=== PATIENT | male | born 1955 | race Caucasian/White ===

== ENCOUNTER 2017-09-29 01:56 | Emergency (ER) | payer BC ==
[2017-09-29] MEDS ORDERED: SODIUM CHLORIDE 0.9% 1000ML 1,000 ML IV ONE (02:15)
[2017-09-29 02:31] LABS: BASOPHILS # (AUTO) 0.1 (0.0-0.1); BASOPHILS % 0.5 % (0.0-1.0); EOSINOPHILS # (AUTO) 0.2 (0.0-0.4); EOSINOPHILS % 1.6 % (0.0-6.0); HEMATOCRIT 55.5 % (38.2-49.6); HEMOGLOBIN 17.9 g/dL (14.0-18.0); LYMPHOCYTES # (AUTO) 2.5 (1.0-3.2); LYMPHOCYTES % 21.2 % (18.0-39.1); MEAN CORPUSCULAR HEMOGLOBIN 28.3 pg (28-32); MEAN CORPUSCULAR HGB CONC 32.3 g/dL (31-35); MEAN CORPUSCULAR VOLUME 87.8 fL (81-99); MONOCYTES # (AUTO) 0.8 (0.2-0.8); MONOCYTES % 6.7 % (4.4-11.3); NEUTROPHILS # (AUTO) 8.1 (2.1-6.9); NEUTROPHILS % 69.7 % (38.7-80.0); PLATELET COUNT 247 x10e3/uL (140-360); RED BLOOD COUNT 6.32 x10e6/uL (4.3-5.7); RED CELL DISTRIBUTION WIDTH 13.2 % (11.7-14.4)
[2017-09-29 02:51] LABS: ALANINE AMINOTRANSFERASE 23 IU/L (0-55); ALBUMIN/GLOBULIN RATIO 1.2 (0.8-2.0); ALKALINE PHOSPHATASE 65 IU/L (40-150); AMYLASE 53 U/L (25-125); ANION GAP 14.9 mmol/L (8-16); BLOOD UREA NITROGEN 15 mg/dL (7-26); BUN/CREATININE RATIO 15 (6-25); CARBON DIOXIDE 25 mmol/L (22-29); CHLORIDE 101 mmol/L (98-107); CREATININE, SERUM 0.98 mg/dL (0.72-1.25); EST GLOMERULAR FILTRATION RATE > 60 ML/MIN (60-); GLUCOSE 110 mg/dL (74-118); LIPASE 26 U/L (8-78); POTASSIUM 3.9 mmol/L (3.5-5.1); SODIUM 137 mmol/L (136-145)
[2017-09-29 03:26] LABS: BILIRUBIN,URINE NEGATIVE (NEGATIVE); KETONES,URINE NEGATIVE (NEGATIVE); LEUKOCYTE ESTERASE ,URINE NEGATIVE (NEGATIVE); NITRITE,URINE NEGATIVE (NEGATIVE); PROTEIN,URINE DIPSTICK NEGATIVE (NEGATIVE); URINE UROBILINOGEN 0.2 mg/dL (0.2 - 1)
[2017-09-29 03:27] LABS: CLARITY,URINE CLEAR (CLEAR); COLOR,URINE YELLOW (YELLOW)
[2017-09-29 03:37] LABS: BACTERIA,URINE RARE /HPF; WBC,URINE (MAN) 0-5 /HPF (0-5)
--- NOTE | 2017-09-29 04:03 | Diagnostic Imaging Report ---
EXAM: CT ABDOMEN AND PELVIS with IV CONTRAST DATE: 09/29/2017 2:09 AM Time stamp on Exam: 0321 hours INDICATION: Left lower quadrant pain COMPARISON: None TECHNIQUE: The abdomen and pelvis were scanned using a multidetector helical scanner. Coronal and sagittal reformations were obtained. Routine protocol performed. IV Contrast: 100 cc Isovue-370 Oral Contrast: Gastrografin CTDIvol has been reviewed. It is below the limits set by the Radiation Protocol Committee (RPC). FINDINGS: LOWER THORAX: No consolidations LIVER: No masses BILIARY: The gallbladder is unremarkable. No ductal dilation. SPLEEN: No masses PANCREAS: No masses ADRENALS: No nodules KIDNEYS: Symmetric perfusion. No enhancing masses. No hydronephrosis. Stone measuring 9 mm in the left renal pelvis. GI TRACT: No distention, wall thickening or evidence of obstruction. Normal appendix. VESSELS: Unremarkable PERITONEUM/RETROPERITONEUM: No free air or fluid LYMPH NODES: No lymphadenopathy REPRODUCTIVE ORGANS: Unremarkable BLADDER: Unremarkable SOFT TISSUES: Small fat-containing umbilical hernia. BONES: No suspicious bone lesions. IMPRESSION: 1. Nonobstructing 9 mm stone in the left renal pelvis. 2. No evidence of diverticulitis. Normal appendix. Signed by: Dr. Jaja Bender M.D. on 09/29/2017 4:00 AM
[2017-09-29 04:35] VITALS: BP 142/84
== END 2017-09-29 04:00 | disposition home or self-care (01) ==
LOC: ER 01:56
DX: R10.32 Left lower quadrant pain (principal); N20.0 Calculus of kidney; M54.9 Dorsalgia, unspecified; G89.29 Other chronic pain
CPT/HCPCS: 36415; 74177; 80053; 81001; 82150; 83690; 85025; 87086; 96360; 99284; J7030

== ENCOUNTER → 2017-09-29 | Outpatient (CLI) | payer BC ==
[~2017-09-29] MED LIST: CENTRUM SILVER1 EAC3 PO; DIATRIZOATE MEGL/DIATRIZOA SOD 30 ML BTL PO ONE; FLOMAX0.4 MG PO; IOPAMIDOL 370 MG/ML 200 ML INFUS..BTL INJ ONE; KRILL OIL500 MG PO; LEVOTHYROXINE75 MCG PO; MELOXICAM7.5 MG PO; PRAVASTATIN SOD40 MG PO; PRILOSEC OTC20 MG PO; ROBAXIN-750750 MG PO; SODIUM CHLORIDE 0.9% 50ML 50 ML ONE; ULTRAM 50MG50 MG PO; VITAMIN E400 UNI1 PO; ZOFRAN ODT4 MG PO; super beta prostate PO
--- NOTE | 2017-09-29 15:27 | Diagnostic Imaging Report ---
History: Bilateral leg pain, back pain Comparison studies: None Technique: Sagittal, coronal and axial T2 , sagittal T1 and IR, axial spin density oblique. Intravenous contrast: None Findings: Number of lumbar vertebral bodies:5 Alignment: Straightening of the normal lordosis.No scoliosis. Soft tissues: No T2 hyperintense inflammatory changes. Paraspinal muscles: No signal abnormalities. No atrophy. Lower thoracic cord:Normal in signal and morphology. The tip of the conus is at L1. Cauda equina: No masses. No arachnoiditis. Vertebrae: Normal in height and signal intensity. No compression fractures, infection or neoplasm. Degenerative changes: L1-L2: Disc degeneration with loss of T2 signal and decreased intervertebral space. Diffuse bulge results in no canal stenosis or significant foraminal narrowing. L2-L3: Disc degeneration with loss of T2 signal and decreased intervertebral space. Schmorl's mild at the L2 inferior endplate with adjacent edema. Mild diffuse disc bulge and mild facet hypertrophy results in no significant canal stenosis or foraminal narrowing. L3-L4: Aeration with loss of T2 signal facet hypertrophy with patent canal and foramina. L4-L5: Disc degeneration with loss of T2 signal. Mild diffuse disc bulge with superimposed small central disc protrusion and mild bilateral facet hypertrophy results in no significant canal stenosis and mild bilateral foraminal narrowing. L5-S1: Moderate right and mild left facet hypertrophy without significant canal stenosis or foraminal narrowing. Additional findings: None IMPRESSION: Disc degeneration and mild posterior hypertrophy at the medial lower lumbar spine without significant canal stenosis and mild bilateral foraminal narrowing at L4-L5. Schmorl node at L2 inferior endplate with adjacent mild edema. Signed by: DR Joe Willard M.D. on 09/29/2017 3:24 PM
== END ==
LOC: MRI 05:25
PROVIDERS: ATTEND Internal Medicine
DX: M54.30 Sciatica, unspecified side (principal)
CPT/HCPCS: 72148; Q9967

== ENCOUNTER 2017-10-01 12:51 | Inpatient (IN) | payer BC ==
[~2017-10-01] VITALS: Ht 172.7 cm; Wt 96.6 kg
[2017-10-01] MEDS ORDERED: ONDANSETRON HCL INJ 2 MG/ML VIAL IV STA (12:54)
[2017-10-01] MEDS ORDERED: SODIUM CHLORIDE 0.9% 1000ML 1,000 ML IV STA (12:54)
[2017-10-01] MEDS ORDERED: MORPHINE SULFATE 4 MG/ML SYR IV STA (12:54)
--- OUTSIDE RECORDS SUMMARY | 2017-10-01 12:54 | XMS REPORT | Continuity of Care Document ---
Author Author [facility] Organization [facility] Address [address] [place] [address] Phone Unavailable Care Team Providers Care Gun Numberer Name Role Phone JOVAN FRAUSTO MD PCP Insurance Providers Guarantor García Oh Address [address] [place] [phone] Email [email or web address] P[facility] Policy Number [id number] Subscriber's Name OhRafaela murillo Relationship 01 Group Number [id number] Group Name [facility] Effective Date 14 Advance Directives Directive Response Recorded Date/Time Does the patient have an advance directive? No 09/29/17 1:53am If yes, is advance directive on file with [facility]? No 01/25/15 7:32am If not on file with [facility] will patient provide a copy? No 01/25/15 7:32am Do you have a Directive to Physician? No 09/29/17 5:24am Do you have a Medical Power of Putty Tinter Maker? No 09/29/17 5:24am Do you have an out of hospital Do Not Resuscitate Order? No 09/29/17 5:24am Do you have any special needs we should be aware of? No 09/29/17 5:24am Do you have a support person here with you today? No 09/29/17 5:24am Did patient receive Notice of Privacy Practices? Yes 09/29/17 5:24am Did patient receive patient rights and responsibilities? Yes 09/29/17 5:24am Problems No problem information available. Medications No medication information available. Social History No social history information available. Hospital Discharge Instructions Current inpatient/outpatient. Discharge instructions are currently unavailable. Plan of Care Current inpatient/outpatient. The plan of care is currently unavailable. Functional Status No functional status information available. Allergies, Adverse Reactions, Alerts No known allergies. Immunizations No immunization information available. Vital Signs Acute Vital Signs Vital Response Date/Time Pulse Pulse Rate (adult) 94 bpm (60 - 90) 09/29/2017 4:35am Respiratory Rate 18 bpm (12 - 24) 09/29/2017 4:35am Blood Pressure 142/84 mm Hg 09/29/2017 4:35am Results Laboratory Results Test Name Result Units Flags Reference Collection Date/Time Result Date/ Time Comments White Blood Count 11.69 x10e3/uL H 4.8-10.8 09/29/2017 2:15am 2017 2:33am Red Blood Count 6.32 x10e6/uL H 4.3-5.7 09/29/2017 2:15am 09/29/2017 2: 33am Hemoglobin 17.9 g/dL 14.0-18.0 09/29/2017 2:15am 09/29/2017 2:33am Hematocrit 55.5 % H 38.2-49.6 09/29/2017 2:15am 09/29/2017 2:33am Mean Corpuscular Volume 87.8 fL 81-99 09/29/2017 2:15am 09/29/2017 2: 33am Mean Corpuscular Hemoglobin 28.3 pg 28-32 09/29/2017 2:15am 09/29/2017 2:33am Mean Corpuscular Hemoglobin Concent 32.3 g/dL 31-35 09/29/2017 2:15am 09/29/2017 2:33am Red Cell Distribution Width 13.2 % 11.7-14.4 09/29/2017 2:15am 2017 2:33am Platelet Count 247 x10e3/uL 140-360 09/29/2017 2:09/29/2017 2: 33am Neutrophils (%) (Auto) 69.7 % 38.7-80.0 09/29/2017 2:09/29/2017 2: 33am Lymphocytes (%) (Auto) 21.2 % 18.0-39.1 09/29/2017 2:09/29/2017 2: 33am Monocytes (%) (Auto) 6.7 % 4.4-11.3 09/29/2017 2:09/29/2017 2: 33am Eosinophils (%) (Auto) 1.6 % 0.0-6.0 09/29/2017 2:09/29/2017 2: 33am Basophils (%) (Auto) 0.5 % 0.0-1.0 09/29/2017 2:09/29/2017 2:33am IM GRANULOCYTES % 0.3 % 0.0-1.0 09/29/2017 2:09/29/2017 2:33am Neutrophils # (Auto) 8.1 H 2.1-6.9 09/29/2017 2:09/29/2017 2: 33am Lymphocytes # (Auto) 2.5 1.0-3.2 09/29/2017 2:09/29/2017 2:33am Monocytes # (Auto) 0.8 0.2-0.8 09/29/2017 2:09/29/2017 2:33am Eosinophils # (Auto) 0.2 0.0-0.4 09/29/2017 2:09/29/2017 2:33am Basophils # (Auto) 0.1 0.0-0.1 09/29/2017 2:09/29/2017 2:33am Absolute Immature Granulocyte (auto 0.04 x10e3/uL 0-0.1 09/29/2017 2: 09/29/2017 2:33am Urine Color YELLOW YELLOW 09/29/2017 3:09/29/2017 3:27am Urine Clarity CLEAR CLEAR 09/29/2017 3:09/29/2017 3:27am Urine Specific [place] 1.010 1.010-1.025 09/29/2017 3:2017 3:27am Urine pH 8 H 5 - 7 09/29/2017 3:09/29/2017 3:27am Urine Leukocyte Esterase NEGATIVE NEGATIVE 09/29/2017 3:2017 3:27am Urine Nitrite NEGATIVE NEGATIVE 09/29/2017 3:09/29/2017 3:27am Urine Protein NEGATIVE NEGATIVE 09/29/2017 3:am 09/29/2017 3:27am Urine Glucose (UA) NEGATIVE NEGATIVE 09/29/2017 3:09/29/2017 3: 27am Urine Ketones NEGATIVE NEGATIVE 09/29/2017 3:09/29/2017 3:27am Urine Urobilinogen 0.2 mg/dL 0.2 - 1 09/29/2017 3:09/29/2017 3: 27am Urine Bilirubin NEGATIVE NEGATIVE 09/29/2017 3:09/29/2017 3: 27am Urine Blood 4+ H NEGATIVE 09/29/2017 3:09/29/2017 3:27am Urine WBC 0-5 /HPF 0-5 09/29/2017 3:09/29/2017 3:38am Urine RBC 11-20 /HPF H 0-5 09/29/2017 3:09/29/2017 3:38am Urine Bacteria RARE /HPF NONE 09/29/2017 3:09/29/2017 3:38am Urine Epithelial Cells NONE /LPF NONE 09/29/2017 3:09/29/2017 3: 38am Sodium Level 137 mmol/L 136-145 09/29/2017 2:1509/29/2017 2:51am Potassium Level 3.9 mmol/L 3.5-5.1 09/29/2017 2:15am 09/29/2017 2:51am Chloride Level 101 mmol/L 98-107 09/29/2017 2:15am 09/29/2017 2:51am Carbon Dioxide Level 25 mmol/L 09/29/2017 2:15am 09/29/2017 2: 51am Anion Gap 14.9 mmol/L 8-16 09/29/2017 2:15am 09/29/2017 2:51am Blood Urea Nitrogen 15 mg/dL 02-2509/29/2017 2:15am 09/29/2017 2:51am Creatinine 0.98 mg/dL 0.72-1.25 09/29/2017 2:1509/29/2017 2:51am BUN/Creatinine Ratio 15 6-25 09/29/2017 2:1509/29/2017 2:51am Estimat Glomerular Filtration Rate > 60 ML/MIN 60- 09/29/2017 2:15 2:51am Ranges were taken from the National Kidney Disease Education Program and the National Kidney Foundation literature. Reference ranges: 60 or greater: Normal 16-59 (for 3 consecutive months): Chronic kidney disease 15 or less: Kidney failure Glucose Level 110 mg/dL 74-118 09/29/2017 2:1509/29/2017 2:51am Calcium Level 10.0 mg/dL 8.4-10.2 09/29/2017 2:09/29/2017 2:51am Total Bilirubin 0.4 mg/dL 0.2-1.2 09/29/2017 2:09/29/2017 2:51am Aspartate Amino Transf (AST/SGOT) 17 IU/L 5-34 09/29/2017 2:2017 2:51am Alanine Aminotransferase (ALT/SGPT) 23 IU/L 0-55 09/29/2017 2:15 2:51am Total Protein 7.4 g/dL 6.5-8.1 09/29/2017 2:1509/29/2017 2:51am Albumin 4.0 g/dL 3.5-5.0 09/29/2017 2:09/29/2017 2:51am Globulin 3.4 g/dL 2.3-3.5 09/29/2017 2:1509/29/2017 2:51am Albumin/Globulin Ratio 1.2 0.8-2.0 09/29/2017 2:1509/29/2017 2: 51am Alkaline Phosphatase 65 IU/L 40-150 09/29/2017 2:1509/29/2017 2: 51am Amylase Level 53 U/L 25-125 09/29/2017 2:1509/29/2017 2:51am Lipase 26 U/L 8-78 09/29/2017 2:1509/29/2017 2:51am Procedures Procedure Status Date Provider(s) Computed tomography of abdomen and pelvis with contrast Active 09/29/17 VAIBHAV CHRISTY MD Encounters Encounter Location Arrival/Admit Date Discharge/Depart Date Attending Provider Registered Clinic [facility] 09/29/17 5:25am JOVAN FRAUSTO MD Departed Emergency Room [facility] 09/29/17 1:56am 4:00am VAIBHAV CHRISTY MD
--- OUTSIDE RECORDS SUMMARY | 2017-10-01 12:54 | XMS REPORT ---
Author Author [facility] Address Unknown Phone Unavailable Care Team Providers Care Machine Setup Operator Name Role Phone JOVAN FRAUSTO Unavailable Unavailable VAIBHAV CHRISTY Unavailable Unavailable Problems This patient has no known problems. Allergies, Adverse Reactions, Alerts This patient has no known allergies or adverse reactions. Medications This patient has no known medications. Results Test Description Test Time Test Comments Text Results Atomic Results Result Comments MRI SPINE LUMBAR WO [place] [address] Patient Name: ILANA OH MR #: [id number] : 1955 Age/Sex: 62/M Req #: [id number] Adm Physician: Ordered by: JOVAN FRAUSTO MD Report #: [id number] Location: MRI Room/Bed: Procedure: [id number] MRI/MRI SPINE LUMBAR WO Exam Date: 09/29/17 Exam Time: 0810 REPORT STATUS: Signed History: Bilateral leg pain, back pain Comparison studies: None Technique: Sagittal, coronal and axial T2 , sagittal T1 and IR, axial spin density oblique. Intravenous contrast: None Findings: Number of lumbar vertebral bodies:5 Alignment: Straightening of the normal lordosis.No scoliosis. Soft tissues: No T2 hyperintense inflammatory changes. Paraspinal muscles: No signal abnormalities. No atrophy. Lower thoracic cord:Normal in signal and morphology. The tip of the conus is at L1. Cauda equina: No masses. No arachnoiditis. Vertebrae: Normal in height and signal intensity. No compression fractures, infection or neoplasm. Degenerative changes: L1 -L2: Disc degeneration with loss of T2 signal and decreased intervertebral space. Diffuse bulge results in no canal stenosis or significant foraminal narrowing. L2-L3: Disc degeneration with loss of T2 signal and decreased intervertebral space. Schmorl's mild at the L2 inferior endplate with adjacent edema. Mild diffuse disc bulge and mild facet hypertrophy results in no significant canal stenosis or foraminal narrowing. L3-L4: Aeration with loss of T2 signal facet hypertrophy with patent canal and foramina. L4-L5: Disc degeneration with loss of T2 signal. Mild diffuse disc bulge with superimposed small central disc protrusion and mild bilateral facet hypertrophy results in no significant canal stenosis and mild bilateral foraminal narrowing. L5-S1: Moderate right and mild left facet hypertrophy without significant canal stenosis or foraminal narrowing. Additional findings: None IMPRESSION: Disc degeneration and mild posterior hypertrophy at the medial lower lumbar spine without significant canal stenosis and mild bilateral foraminal narrowing at L4-L5. Schmorl node at L2 inferior endplate with adjacent mild edema. Signed by: DR Joe Willard M.D. on 09/29/2017 3:24 PM Dictated By: JOE WILLARD MD 1524 Transcribed By: TOMMIE on 09/29/17 1524 COPY TO: JOVAN FRAUSTO MD CT ABDOMEN/PELVIS W [place] [address] Patient Name: ILANA OH MR #: [id number] : 1955 Age/Sex: 62/M Req #: [id number] Adm Physician: Ordered by: VAIBHAV CHRISTY MD Report #: [id number] Location: ER Room/Bed: Procedure: [id number] CT/CT ABDOMEN/PELVIS W Exam Date: 09/29/17 Exam Time: 0315 REPORT STATUS: Signed EXAM: CT ABDOMEN AND PELVIS with IV CONTRAST DATE: 09/29/2017 2:09 AM Time stamp on Exam: 0321 hours INDICATION: Left lower quadrant pain COMPARISON: None TECHNIQUE: The abdomen and pelvis were scanned using a multidetector helical scanner. Coronal and sagittal reformations were obtained. Routine protocol performed. IV Contrast: 100 cc Isovue-370 Oral Contrast: Gastrografin CTDIvol has been reviewed. It is below the limits set by the Radiation Protocol Committee (RPC). FINDINGS: LOWER THORAX: No consolidations LIVER: No masses BILIARY: The gallbladder is unremarkable. No ductal dilation. SPLEEN: No masses PANCREAS: No masses ADRENALS: No nodules KIDNEYS: Symmetric perfusion. No enhancing masses. No hydronephrosis. Stone measuring 9 mm in the left renal pelvis. GI TRACT: No distention, wall thickening or evidence of obstruction. Normal appendix. VESSELS: Unremarkable PERITONEUM/RETROPERITONEUM: No free air or fluid LYMPH NODES: No lymphadenopathy REPRODUCTIVE ORGANS: Unremarkable BLADDER: Unremarkable SOFT TISSUES: Small fat-containing umbilical hernia. BONES: No suspicious bone lesions. IMPRESSION: 1. Nonobstructing 9 mm stone in the left renal pelvis. 2. No evidence of diverticulitis. Normal appendix. Signed by: Dr. Enrique Bender M.D. on 09/29/2017 4:00 AM Dictated By: ENRIQUE BENDER MD 9 COPY TO: VAIBHAV CHRISTY MD
--- NOTE | 2017-10-01 13:53 | Diagnostic Imaging Report ---
PROCEDURE: CT ABDOMEN AND PELVIS WITHOUT CONTRAST TECHNIQUE: The abdomen and pelvis were scanned utilizing a multidetector helical scanner from the diaphragm to the lesser trochanter after the oral administration of water. No IV contrast was administered per renal stone protocol Coronal and sagittal multiplanar reformations were obtained. COMPARISON: [facility], CT, CT ABDOMEN/PELVIS W, 09/29/2017, 3:18. INDICATIONS: Upper ABDOMEN PAIN FINDINGS: ABSENCE OF INTRAVENOUS CONTRAST DECREASES SENSITIVITY FOR DETECTION OF FOCAL LESIONS AND VASCULAR PATHOLOGY. LOWER THORAX: Unremarkable. HEPATOBILIARY: Borderline decreased attenuation of the hepatic parenchyma, consistent with mild steatosis. No focal lesions. No biliary ductal dilation. Gallbladder is unremarkable. SPLEEN: No splenomegaly. PANCREAS: No focal masses or ductal dilatation. ADRENALS: No adrenal nodules. KIDNEYS/URETERS: Stable 9 mm nonobstructing calculus in the left renal pelvis (series 3, image 76). No hydronephrosis or evidence of obstruction. No other renal or ureteral calculi. No contrast abnormalities. PELVIC ORGANS/BLADDER: No bladder calculi. Circumferential bladder wall thickening, which is partly due to under distention. PERITONEUM / RETROPERITONEUM: No free air or fluid. LYMPH NODES: No lymphadenopathy. VESSELS: Unremarkable. GI TRACT: No bowel dilation or evidence of obstruction. Residual contrast in the distal colon from prior CT abdomen and pelvis. Distal descending and sigmoid diverticulosis, without diverticulitis. BONES AND SOFT TISSUES: No aggressive lytic lesions. Degenerative disc changes in the lower thoracic and lumbosacral spine. Stable 2.5 x 3.8 x 3.3 cm fat containing umbilical hernia. IMPRESSION: 1. stable 9 mm, nonobstructing calculus in the left renal pelvis. No other renal or any ureteral calculi, hydronephrosis, or obstruction. Rony Bronson M.D. Dictated by: Rony Bronson M.D. on 10/01/2017 at 13:53 Electronically approved by: Rony Bronson M.D. on 10/01/2017 at 13:53
[2017-10-01] MEDS ORDERED: MORPHINE SULFATE 2 MG/ML SYR IV PRN (16:15)
[2017-10-01] MEDS ORDERED: ONDANSETRON HCL INJ 2 MG/ML VIAL IV PRN (16:15)
[2017-10-01 16:21] LABS: BASOPHILS # (AUTO) 0.1 (0.0-0.1); BASOPHILS % 0.6 % (0.0-1.0); EOSINOPHILS # (AUTO) 0.1 (0.0-0.4); EOSINOPHILS % 0.4 % (0.0-6.0); HEMATOCRIT 55.5 % (38.2-49.6); HEMOGLOBIN 18.2 g/dL (14.0-18.0); LYMPHOCYTES # (AUTO) 2.2 (1.0-3.2); LYMPHOCYTES % 15.6 % (18.0-39.1); MEAN CORPUSCULAR HEMOGLOBIN 28.5 pg (28-32); MEAN CORPUSCULAR HGB CONC 32.8 g/dL (31-35); MEAN CORPUSCULAR VOLUME 86.9 fL (81-99); MONOCYTES # (AUTO) 1.2 (0.2-0.8); MONOCYTES % 8.5 % (4.4-11.3); NEUTROPHILS # (AUTO) 10.4 (2.1-6.9); NEUTROPHILS % 74.1 % (38.7-80.0); PLATELET COUNT 258 x10e3/uL (140-360); RED BLOOD COUNT 6.39 x10e6/uL (4.3-5.7); RED CELL DISTRIBUTION WIDTH 13.2 % (11.7-14.4)
[2017-10-01 16:34] LABS: ALANINE AMINOTRANSFERASE 25 IU/L (0-55); ALBUMIN 4.4 g/dL (3.5-5.0); ALBUMIN/GLOBULIN RATIO 1.3 (0.8-2.0); ALKALINE PHOSPHATASE 63 IU/L (40-150); ANION GAP 18.9 mmol/L (8-16); BLOOD UREA NITROGEN 14 mg/dL (7-26); BUN/CREATININE RATIO 12 (6-25); CALCIUM 10.3 mg/dL (8.4-10.2); CARBON DIOXIDE 26 mmol/L (22-29); CHLORIDE 99 mmol/L (98-107); CREATININE, SERUM 1.19 mg/dL (0.72-1.25); EST GLOMERULAR FILTRATION RATE > 60 ML/MIN (60-); GLUCOSE 91 mg/dL (74-118); POTASSIUM 3.9 mmol/L (3.5-5.1); SODIUM 140 mmol/L (136-145)
[2017-10-01] MEDS ORDERED: LEVOFLOXACIN 750MG/D5W 150ML 150 ML IV NR (16:38)
[2017-10-01 17:36] LABS: BILIRUBIN,URINE 2+ (NEGATIVE); CLARITY,URINE HAZY (CLEAR); COLOR,URINE BROWN (YELLOW); KETONES,URINE 3+ (NEGATIVE); LEUKOCYTE ESTERASE ,URINE 1+ (NEGATIVE); NITRITE,URINE NEGATIVE (NEGATIVE); PROTEIN,URINE DIPSTICK 2+ (NEGATIVE); URINE UROBILINOGEN 1 mg/dL (0.2 - 1)
[2017-10-01 17:50] LABS: RBC,URINE >50 /HPF (0-5)
[2017-10-01] MEDS: ONDANSETRON HCL INJ 2 MG/ML VIAL IV PRN (18:09)
[2017-10-01] MEDS: SODIUM CHLORIDE 0.9% 1000ML 1,000 ML IV SCH (19:51)
[2017-10-01] MEDS: HYDROMORPHONE 1MG/1ML INJ IV PRN (19:51)
[2017-10-01 21:06] VITALS: BP 113/68
[2017-10-01] MEDS: LEVOFLOXACIN 500MG/D5W 100ML 100 ML IV SCH (21:25)
[2017-10-02 01:14] VITALS: BP 113/68
[2017-10-02] MEDS: ONDANSETRON HCL INJ 2 MG/ML VIAL IV PRN ×3 (01:56→23:30)
[2017-10-02] MEDS: SODIUM CHLORIDE 0.9% 1000ML 1,000 ML IV SCH ×3 (01:56→17:57)
[2017-10-02] MEDS: HYDROMORPHONE 1MG/1ML INJ IV PRN ×5 (01:56→23:30)
[2017-10-02] MEDS ORDERED: ACETAMINOPHEN 325 MG TAB PO PRN (02:00)
[2017-10-02 05:59] VITALS: BP 163/83
[2017-10-02 06:21] LABS: BASOPHILS # (AUTO) 0.1 (0.0-0.1); BASOPHILS % 0.5 % (0.0-1.0); EOSINOPHILS # (AUTO) 0.1 (0.0-0.4); EOSINOPHILS % 1.2 % (0.0-6.0); HEMATOCRIT 51.1 % (38.2-49.6); HEMOGLOBIN 16.3 g/dL (14.0-18.0); LYMPHOCYTES # (AUTO) 2.4 (1.0-3.2); LYMPHOCYTES % 19.7 % (18.0-39.1); MEAN CORPUSCULAR HEMOGLOBIN 28.2 pg (28-32); MEAN CORPUSCULAR HGB CONC 31.9 g/dL (31-35); MEAN CORPUSCULAR VOLUME 88.6 fL (81-99); MONOCYTES # (AUTO) 1.3 (0.2-0.8); MONOCYTES % 10.9 % (4.4-11.3); NEUTROPHILS % 67.2 % (38.7-80.0); PLATELET COUNT 213 x10e3/uL (140-360); RED BLOOD COUNT 5.77 x10e6/uL (4.3-5.7); RED CELL DISTRIBUTION WIDTH 13.3 % (11.7-14.4)
[2017-10-02] MEDS: KETOROLAC TROMETHAMINE 30 MG/ML VIAL IV PRN ×2 (06:31→18:05)
[2017-10-02 06:36] LABS: INR 1.27; PROTHROMBIN TIME 14.9 seconds (11.9-14.5)
[2017-10-02] MEDS ORDERED: ROBAXIN-750750 MG PO (06:39)
[2017-10-02] MEDS ORDERED: ULTRAM 50MG50 MG PO (06:39)
[2017-10-02] MEDS ORDERED: KRILL OIL500 MG PO (06:39)
[2017-10-02] MEDS ORDERED: MELOXICAM7.5 MG PO (06:39)
[2017-10-02] MEDS ORDERED: LEVOTHYROXINE75 MCG PO (06:39)
[2017-10-02] MEDS ORDERED: PRAVASTATIN SOD40 MG PO (06:39)
[2017-10-02] MEDS ORDERED: FLOMAX0.4 MG PO (06:39)
[2017-10-02] MEDS ORDERED: VITAMIN E400 UNI1 PO (06:39)
[2017-10-02] MEDS ORDERED: PRILOSEC OTC20 MG PO (06:40)
[2017-10-02] MEDS ORDERED: super beta prostate PO (06:40)
[2017-10-02] MEDS ORDERED: CENTRUM SILVER1 EAC3 PO (06:40)
[2017-10-02 06:49] LABS: ANION GAP 12.2 mmol/L (8-16); BLOOD UREA NITROGEN 14 mg/dL (7-26); BUN/CREATININE RATIO 16 (6-25); CALCIUM 8.6 mg/dL (8.4-10.2); CARBON DIOXIDE 24 mmol/L (22-29); CHLORIDE 106 mmol/L (98-107); CREATININE, SERUM 0.87 mg/dL (0.72-1.25); EST GLOMERULAR FILTRATION RATE > 60 ML/MIN (60-); GLUCOSE 75 mg/dL (74-118); POTASSIUM 4.2 mmol/L (3.5-5.1); SODIUM 138 mmol/L (136-145)
[2017-10-02] MEDS ORDERED: TRAMADOL HCL 50 MG TAB PO PRN (07:15)
[2017-10-02 08:00] VITALS: BP 149/81
[2017-10-02] MEDS ORDERED: NON-FORMULARY MEDICATION (Omeprazole Magnesium (Prilosec Otc) 40 MG) PO SCH (09:00)
[2017-10-02] MEDS: PANTOPRAZOLE SOD 40 MG TABEC PO SCH (09:11)
[2017-10-02] MEDS: METHOCARBAMOL 750 MG TAB PO SCH ×3 (09:11→20:19)
[2017-10-02] MEDS: LEVOFLOXACIN 500MG/D5W 100ML 100 ML IV SCH (09:11)
[2017-10-02] MEDS: MELOXICAM 7.5 MG TAB PO SCH (09:11)
[2017-10-02 12:00] VITALS: BP 130/75
[2017-10-02 16:00] VITALS: BP 136/79
[2017-10-02] MEDS ORDERED: MAGNESIUM/ALUMINUM/SIMETHICONE 30 ML UDC PO PRN (16:45)
[2017-10-02 20:00] VITALS: BP 139/78
[2017-10-02] MEDS: SIMVASTATIN 20 MG TAB PO SCH (20:19)
[2017-10-02] MEDS: TAMSULOSIN HCL 0.4 MG CAP PO SCH (20:19)
[2017-10-02] MEDS ORDERED: NON-FORMULARY MEDICATION (Pravastatin Sodium 40 MG) PO SCH (21:00)
[2017-10-03] VITALS: BP 131/68
[2017-10-03] MEDS: SODIUM CHLORIDE 0.9% 1000ML 1,000 ML IV SCH ×3 (01:20→17:34)
[2017-10-03] MEDS: ONDANSETRON HCL INJ 2 MG/ML VIAL IV PRN ×4 (03:40→19:35)
[2017-10-03] MEDS: HYDROMORPHONE 1MG/1ML INJ IV PRN ×5 (03:40→22:49)
[2017-10-03 04:00] VITALS: BP 122/70
[2017-10-03] MEDS: LEVOTHYROXINE SODIUM 75 MCG TAB PO SCH (05:32)
[2017-10-03] MEDS: KETOROLAC TROMETHAMINE 30 MG/ML VIAL IV PRN (05:40)
[2017-10-03 08:00] VITALS: BP 111/65
[2017-10-03] MEDS: PANTOPRAZOLE SOD 40 MG TABEC PO SCH (08:11)
[2017-10-03] MEDS: LEVOFLOXACIN 500MG/D5W 100ML 100 ML IV SCH (08:11)
[2017-10-03] MEDS: MELOXICAM 7.5 MG TAB PO SCH (08:11)
[2017-10-03] MEDS: METHOCARBAMOL 750 MG TAB PO SCH ×3 (08:11→19:36)
[2017-10-03 12:00] VITALS: BP 165/95
[2017-10-03] MEDS: METHYLPREDNISOLONE SOD SUCC 125 MG/2ML VIAL IV SCH ×2 (14:53→19:36)
[2017-10-03 16:00] VITALS: BP 121/66
[2017-10-03] MEDS: SIMVASTATIN 20 MG TAB PO SCH (19:36)
[2017-10-03] MEDS: TAMSULOSIN HCL 0.4 MG CAP PO SCH (19:36)
[2017-10-03 20:00] VITALS: BP 150/93
[2017-10-04] VITALS: BP 145/69
[2017-10-04] MEDS: SODIUM CHLORIDE 0.9% 1000ML 1,000 ML IV SCH (01:21)
[2017-10-04 04:00] VITALS: BP 121/70
[2017-10-04] MEDS: METHYLPREDNISOLONE SOD SUCC 125 MG/2ML VIAL IV SCH (06:18)
[2017-10-04] MEDS: LEVOTHYROXINE SODIUM 75 MCG TAB PO SCH (06:18)
[2017-10-04] MEDS: HYDROMORPHONE 1MG/1ML INJ IV PRN (06:18)
[2017-10-04] MEDS: ONDANSETRON HCL INJ 2 MG/ML VIAL IV PRN (06:18)
[2017-10-04 07:30] VITALS: BP 146/83
[2017-10-04] MEDS: PANTOPRAZOLE SOD 40 MG TABEC PO SCH (07:30)
[2017-10-04] MEDS: KETOROLAC TROMETHAMINE 30 MG/ML VIAL IV PRN (07:50)
[2017-10-04 08:00] VITALS: BP 146/93
[2017-10-04] MEDS: LEVOFLOXACIN 500MG/D5W 100ML 100 ML IV SCH (08:23)
[2017-10-04] MEDS: METHOCARBAMOL 750 MG TAB PO SCH (08:23)
[2017-10-04] MEDS: MELOXICAM 7.5 MG TAB PO SCH (08:23)
[2017-10-05] MEDS ORDERED: NON-FORMULARY MEDICATION (Mu-Vits-Min Th/Lycopene/Lutein (Centrum Silver Tablet) 1 TAB) PO SCH (09:00)
[2017-10-05] MEDS ORDERED: SUPER BETA PROSTATE PO SCH (09:00)
== END 2017-10-04 14:05 | disposition home or self-care (01) | DRG 552 ==
LOC: ER 12:51 → ERHOLD 20:23 → MED/SURG2 20:49
PROVIDERS: ADMIT Internal Medicine; ATTEND Internal Medicine
DX: M54.5 Low back pain (principal); N20.0 Calculus of kidney; G89.29 Other chronic pain; K80.20 Calculus of gallbladder without cholecystitis without obstruction
CPT/HCPCS: 36415; 74176; 80048; 80053; 81001; 82948; 85025; 85610; 87086; 99284; J1170; J1885; J1956; J2270; J2405; J2930; J7030

== ENCOUNTER 2017-10-12 05:55 | Inpatient (IN) | payer BC ==
[~2017-10-12] VITALS: Ht 172.7 cm; Wt 62.1 kg
[~2017-10-12 05:55] MED LIST changes: -DIATRIZOATE MEGL/DIATRIZOA SOD 30 ML BTL PO ONE; -IOPAMIDOL 370 MG/ML 200 ML INFUS..BTL INJ ONE; -SODIUM CHLORIDE 0.9% 50ML 50 ML ONE; -ZOFRAN ODT4 MG PO
--- OUTSIDE RECORDS SUMMARY | 2017-10-12 05:58 | XMS REPORT | Continuity of Care Document ---
Author Author [facility] Organization [facility] Address [address] [place] [address] Phone Unavailable Care Team Providers Care Manufacturing Laborer Name Role Phone JOVAN FRAUSTO MD PCP Insurance Providers Guarantor García Oh Address [address] [place] [phone] Email [email or web address] [facility]ayer [facility] Policy Number [id number] Subscriber's Name Rafaela Oh Relationship 01 Group Number [id number] Group Name [facility] Effective Date 14 Advance Directives Directive Response Recorded Date/Time Does the patient have an advance directive? No 10/01/17 9:06pm If yes, is advance directive on file with [facility]? No 01/25/15 7:32am If not on file with [facility] will patient provide a copy? No 01/25/15 7:32am Do you have a Directive to Physician? No 10/01/17 3:15pm Do you have a Medical Power of Chemical Engineering Professor? No 03/01/18 3:15pm Do you have an out of hospital Do Not Resuscitate Order? No 10/01/17 3:15pm Do you have any special needs we should be aware of? No 10/01/17 3:15pm Do you have a support person here with you today? No 10/01/17 3:15pm Did patient receive Notice of Privacy Practices? Yes 10/01/17 3:15pm Did patient receive patient rights and responsibilities? Yes 10/01/17 3:15pm Problems Medical Problem Onset Date Status Ureterolithiasis Unknown Medications Current Home Medications Medication Dose Units Route Directions Days Qty Instructions Start Date Krill Oil 500 Mg Capsule 350 Oral Daily Levothyroxine Sodium 75 Mcg Tablet 75 Mcg Oral Daily@0600 30 Tab Meloxicam 7.5 Mg Tablet 15 Mg Oral Daily 30 Tab Methocarbamol (Robaxin-750) 750 Mg Tablet 750 Mg Oral Three Times A Day Mu-Vits-Min Th/Lycopene/Lutein (Centrum Silver Tablet) 1 Each Tablet 1 Tab Oral Daily Omeprazole Magnesium (Prilosec Otc) 20 Mg Tablet.dr 40 Mg Oral Daily Pravastatin Sodium 40 Mg Tablet 40 Mg Oral Bedtime Super Beta Prostate 250 Mg Oral Daily Tamsulosin Hcl (Flomax*) 0.4 Mg Cap 0.4 Mg Oral Bedtime 30 Cap Tramadol Hcl (Ultram 50MG*) 50 Mg Tab 50 Mg Oral Three Times A Day as needed for Pain Vitamin E Mixed (Vitamin E) 400 Unit Capsule 400 Mg Oral Daily Social History Social History Problem Response Recorded Date/Time Onset Date Status Hx Psychiatric Problems No 10/01/2017 9:06pm Not Applicable Not Applicable Hx Eating Disorder No 10/01/2017 9:06pm Not Applicable Not Applicable Hx Substance Use Disorder No 10/01/2017 9:06pm Not Applicable Not Applicable Hx Depression No 10/01/2017 9:06pm Not Applicable Not Applicable Hx Alcohol Use Y - OCCASTIONAL 10/01/2017 9:06pm Not Applicable Not Applicable Hx Substance Use Treatment No 10/01/2017 9:06pm Not Applicable Not Applicable Hx Physical Abuse No 10/01/2017 9:06pm Not Applicable Not Applicable Smoking Status Start Date Stop Date Never Smoker Hospital Discharge Instructions No hospital discharge instruction information available. Plan of Care Discharge Date 10/04/17 2:05pm Disposition HOME, SELF-CARE Instructions/Education Provided Kidney Stones Prescriptions See Medication Section Additional Instructions/Education Regular Diet Functional Status Query Response Date Recorded Assistive Devices None October 01, 2017 9:06pm Ambulation Ability Independent October 01, 2017 9:06pm Toileting Ability Independent October 02, 2017 5:53pm Allergies, Adverse Reactions, Alerts No known allergies. Immunizations No immunization information available. Vital Signs Acute Vital Signs Vital Response Date/Time Temperature (Fahrenheit) 97.6 degrees F (97.6 - 99.5) 10/04/2017 8:00am Pulse Pulse Rate (adult) 97 bpm (60 - 90) 10/04/2017 8:00am Respiratory Rate 18 bpm (12 - 24) 10/04/2017 8:00am Blood Pressure 146/93 mm Hg 10/04/2017 8:00am Height 5 ft 8 in 10/01/2017 1:16pm Weight 213.06 lb 10/01/2017 9:06pm Body Mass Index 32.4 kg/m^2 10/02/2017 1:15am Results Laboratory Results Test Name Result Units Flags Reference Collection Date/Time Result Date/ Time Comments Amylase Level 53 U/L 25-125 09/29/2017 2:15am 09/29/2017 2:51am Lipase 26 U/L 8-78 09/29/2017 2:15am 09/29/2017 2:51am White Blood Count 11.90 x10e3/uL H 4.8-10.8 10/02/2017 6:02am 2017 6:21am Red Blood Count 5.77 x10e6/uL H 4.3-5.7 10/02/2017 6:02am 10/02/2017 6: 21am Hemoglobin 16.3 g/dL 14.0-18.0 10/02/2017 6:02am 10/02/2017 6:21am Hematocrit 51.1 % H 38.2-49.6 10/02/2017 6:02am 10/02/2017 6:21am Mean Corpuscular Volume 88.6 fL 81-99 10/02/2017 6:02am 10/02/2017 6: 21am Mean Corpuscular Hemoglobin 28.2 pg 28-32 10/02/2017 6:02am 10/02/2017 6:21am Mean Corpuscular Hemoglobin Concent 31.9 g/dL 31-35 10/02/2017 6:02am 10/02/2017 6:21am Red Cell Distribution Width 13.3 % 11.7-14.4 10/02/2017 6:02am 2017 6:21am Platelet Count 213 x10e3/uL 140-360 10/02/2017 6:02am 10/02/2017 6: 21am Neutrophils (%) (Auto) 67.2 % 38.7-80.0 10/02/2017 6:02am 10/02/2017 6: 21am Lymphocytes (%) (Auto) 19.7 % 18.0-39.1 10/02/2017 6:02am 10/02/2017 6: 21am Monocytes (%) (Auto) 10.9 % 4.4-11.3 10/02/2017 6:02am 10/02/2017 6: 21am Eosinophils (%) (Auto) 1.2 % 0.0-6.0 10/02/2017 6:02am 10/02/2017 6: 21am Basophils (%) (Auto) 0.5 % 0.0-1.0 10/02/2017 6:02am 10/02/2017 6:21am IM GRANULOCYTES % 0.5 % 0.0-1.0 10/02/2017 6:02am 10/02/2017 6:21am Neutrophils # (Auto) 8.0 H 2.1-6.9 10/02/2017 6:02am 10/02/2017 6: 21am Lymphocytes # (Auto) 2.4 1.0-3.2 10/02/2017 6:02am 10/02/2017 6:21am Monocytes # (Auto) 1.3 H 0.2-0.8 10/02/2017 6:02am 10/02/2017 6:21am Eosinophils # (Auto) 0.1 0.0-0.4 10/02/2017 6:02am 10/02/2017 6:21am Basophils # (Auto) 0.1 0.0-0.1 10/02/2017 6:02am 10/02/2017 6:21am Absolute Immature Granulocyte (auto 0.06 x10e3/uL 0-0.1 10/02/2017 6: 02am 10/02/2017 6:21am Prothrombin Time 14.9 seconds H 11.9-14.5 10/02/2017 6:02am 10/02/2017 6 :38am Prothromb Time International Ratio 1.27 10/02/2017 6:02am 2017 6:38am Oral Anticoagulant Therapy INR Values: 1. Low Intensity Therapy 1.5 - 2.0 2. Moderate Intensity Therapy 2.0 - 3.0 3. High Intensity Therapy(1) 2.5 - 3.5 4. High Intensity Therapy(2) 3.0 - 4.0 5. Panic Value INR > 5.0 Urine Color BROWN H YELLOW 10/01/2017 3:50pm 10/01/2017 5:36pm Urine Clarity HAZY CLEAR 10/01/2017 3:50pm 10/01/2017 5:36pm Urine Specific [place] Pool 1.025 1.010-1.025 10/01/2017 3:50pm 2017 5:36pm Urine pH 6.5 5 - 7 10/01/2017 3:50pm 10/01/2017 5:36pm Urine Leukocyte Esterase 1+ H NEGATIVE 10/01/2017 3:50pm 10/01/2017 5: 36pm Urine Nitrite NEGATIVE NEGATIVE 10/01/2017 3:50pm 10/01/2017 5:36pm Urine Protein 2+ H NEGATIVE 10/01/2017 3:50pm 10/01/2017 5:36pm Urine Glucose (UA) NEGATIVE NEGATIVE 10/01/2017 3:50pm 10/01/2017 5: 36pm Urine Ketones 3+ H NEGATIVE 10/01/2017 3:50pm 10/01/2017 5:36pm Urine Urobilinogen 1 mg/dL 0.2 - 1 10/01/2017 3:50pm 10/01/2017 5:36pm Urine Bilirubin 2+ H NEGATIVE 10/01/2017 3:50pm 10/01/2017 5:36pm Confirmatory test currently unavailable. False positive results may occur. Urine Blood 4+ H NEGATIVE 10/01/2017 3:50pm 10/01/2017 5:36pm Urine WBC NONE /HPF 0-5 10/01/2017 3:50pm 10/01/2017 5:50pm Urine RBC >50 /HPF H 0-5 10/01/2017 3:50pm 10/01/2017 5:50pm Urine Bacteria NONE /HPF NONE 10/01/2017 3:50pm 10/01/2017 5:50pm Urine Epithelial Cells NONE /LPF NONE 10/01/2017 3:50pm 10/01/2017 5: 50pm Sodium Level 138 mmol/L 136-145 10/02/2017 6:02am 10/02/2017 6:57am Potassium Level 4.2 mmol/L 3.5-5.1 10/02/2017 6:02am 10/02/2017 6:57am Chloride Level 106 mmol/L 98-107 10/02/2017 6:02am 10/02/2017 6:57am Carbon Dioxide Level 24 mmol/L 22-29 10/02/2017 6:02am 10/02/2017 6: 57am Anion Gap 12.2 mmol/L 8-16 10/02/2017 6:02am 10/02/2017 6:57am Blood Urea Nitrogen 14 mg/dL 7-10/02/2017 6:02am 10/02/2017 6:57am Creatinine 0.87 mg/dL 0.72-1.25 10/02/2017 6:02am 10/02/2017 6:57am BUN/Creatinine Ratio 16 6-25 10/02/2017 6:02am 10/02/2017 6:57am Estimat Glomerular Filtration Rate > 60 ML/MIN 60- 10/02/2017 6:02am 6:57am Ranges were taken from the National Kidney Disease Education Program and the National Kidney Foundation literature. Reference ranges: 60 or greater: Normal 16-59 (for 3 consecutive months): Chronic kidney disease 15 or less: Kidney failure Glucose Level 75 mg/dL 74-118 10/02/2017 6:02am 10/02/2017 6:57am Calcium Level 8.6 mg/dL # 8.4-10.2 10/02/2017 6:02am 10/02/2017 6:57am Bedside Glucose 85 mg/dL 70-120 10/03/2017 4:07pm 10/03/2017 6:22pm Meter ID: [id number] Total Bilirubin 0.5 mg/dL 0.2-1.2 10/01/2017 3:50pm 10/01/2017 4:34pm Aspartate Amino Transf (AST/SGOT) 20 IU/L 5-34 10/01/2017 3:50pm 2017 4:34pm Alanine Aminotransferase (ALT/SGPT) 25 IU/L 0-55 10/01/2017 3:50pm 08/2017 4:34pm Total Protein 7.9 g/dL 6.5-8.1 10/01/2017 3:50pm 10/01/2017 4:34pm Albumin 4.4 g/dL 3.5-5.0 10/01/2017 3:50pm 10/01/2017 4:34pm Globulin 3.5 g/dL 2.3-3.5 10/01/2017 3:50pm 10/01/2017 4:34pm Albumin/Globulin Ratio 1.3 0.8-2.0 10/01/2017 3:50pm 10/01/2017 4: 34pm Alkaline Phosphatase 63 IU/L 40-150 10/01/2017 3:50pm 10/01/2017 4: 34pm Procedures Procedure Status Date Provider(s) Computed tomography of abdomen and pelvis with contrast Active 09/29/17 VAIBHAV CHRISTY MD Magnetic resonance imaging of lumbar spine without contrast Active 09/29/[address] of abdomen and pelvis without contrast Active 10/01/17 [employer] Encounters Encounter Location Arrival/Admit Date Discharge/Depart Date Attending Provider Discharged Inpatient [facility] 10/01/17 8:23pm 10/04/17 2:05pm JOVAN FRAUSTO MD Registered Clinic [facility] 09/29/17 5:25am JOVAN FRAUSTO MD Departed Emergency Room [facility] 09/29/17 1:56am 4:00am VAIBHAV CHRISTY MD
[2017-10-12] MEDS ORDERED: PANTOPRAZOLE 40 MG 10ML VIAL IV STA (06:05)
[2017-10-12] MEDS ORDERED: ONDANSETRON HCL INJ 2 MG/ML VIAL IV STA (06:05)
[2017-10-12] MEDS ORDERED: SODIUM CHLORIDE 0.9% 1000ML 1,000 ML IV STA (06:05)
[2017-10-12 06:58] LABS: BASOPHILS # (AUTO) 0.1 (0.0-0.1); BASOPHILS % 0.7 % (0.0-1.0); EOSINOPHILS # (AUTO) 0.2 (0.0-0.4); EOSINOPHILS % 1.2 % (0.0-6.0); HEMATOCRIT 56.8 % (38.2-49.6); HEMOGLOBIN 18.7 g/dL (14.0-18.0); KETONES,URINE NEGATIVE (NEGATIVE); LEUKOCYTE ESTERASE ,URINE NEGATIVE (NEGATIVE); LYMPHOCYTES # (AUTO) 2.3 (1.0-3.2); LYMPHOCYTES % 18.7 % (18.0-39.1); MEAN CORPUSCULAR HEMOGLOBIN 28.6 pg (28-32); MEAN CORPUSCULAR HGB CONC 32.9 g/dL (31-35); MEAN CORPUSCULAR VOLUME 86.9 fL (81-99); MONOCYTES # (AUTO) 1.3 (0.2-0.8); MONOCYTES % 10.7 % (4.4-11.3); NEUTROPHILS # (AUTO) 8.2 (2.1-6.9); NITRITE,URINE NEGATIVE (NEGATIVE); PLATELET COUNT 224 x10e3/uL (140-360); RED BLOOD COUNT 6.54 x10e6/uL (4.3-5.7); RED CELL DISTRIBUTION WIDTH 14.1 % (11.7-14.4); URINE UROBILINOGEN 0.2 mg/dL (0.2 - 1)
--- NOTE | 2017-10-12 06:58 | Diagnostic Imaging Report ---
PROCEDURE: CHEST SINGLE (PORTABLE) COMPARISON: None. INDICATIONS: NAUSEA, VOMITING, WEIGHT LOSS FINDINGS: LUNGS: No consolidations or edema. PLEURA: No effusions or pneumothorax. HEART \T\ MEDIASTINUM: The heart is within normal size-limits. BONES \T\ SOFT TISSUES: No acute findings. Old left rib fractures and orthopedic plate overlying the middle portion of the left clavicle. CONCLUSION: No acute thoracic abnormality. Gerald Rodriguez D.O. Dictated by: Gerald Rodriguez D.O. on 10/12/2017 at 6:57 Electronically approved by: Gerald Rodriguez D.O. on 10/12/2017 at 6:57
--- NOTE | 2017-10-12 06:59 | Diagnostic Imaging Report ---
EXAM: CT Abdomen and Pelvis WITHOUT contrast INDICATION: Flank pain COMPARISON: None. TECHNIQUE: Abdomen and pelvis were scanned utilizing a multidetector helical scanner from the lung base to the pubic symphysis without administration of IV contrast. Absence of intravenous contrast decreases sensitivity for detection of focal lesions and vascular pathology. Coronal and sagittal reformations were obtained. Stone protocol is performed. IV CONTRAST: None. ORAL CONTRAST: Water RADIATION DOSE: Total DLP: 618.6 mGy*cm Estimated effective dose: (DLP x 0.015 x size factor) mSv COMPLICATIONS: None FINDINGS: LINES and TUBES: None. LOWER THORAX: Unremarkable HEPATOBILIARY: No focal hepatic lesions. No biliary ductal dilation. GALLBLADDER: No radio-opaque stones or sludge. No wall thickening. SPLEEN: No splenomegaly. PANCREAS: No focal masses or ductal dilatation. ADRENALS: No adrenal nodules KIDNEYS/URETERS: No hydronephrosis. No cystic or solid mass lesions. There is a 9.6 mm stone in the inferior renal collecting system of the left kidney. GI TRACT: No abnormal distention, wall thickening, or evidence of bowel obstruction. There are diverticula within the colon without evidence of diverticulitis. Appendix is normal. PELVIC ORGANS/BLADDER: Unremarkable. LYMPH NODES: No lymphadenopathy. VESSELS: Unremarkable. PERITONEUM / RETROPERITONEUM: No free air or fluid. BONES: Unremarkable. SOFT TISSUES: Unremarkable. IMPRESSION: 1. Nonobstructing left renal stone. 2. Otherwise, no acute intra-abdominal or pelvic abnormality. Signed by: Dr. Satish Trujillo M.D. on 10/12/2017 6:56 AM
[2017-10-12] MEDS ORDERED: PROMETHAZINE HCL (IM) 25 MG/ML VIAL IV PRN (07:00)
[2017-10-12 07:01] LABS: BILIRUBIN,URINE 1+ (NEGATIVE); CLARITY,URINE SL CLOUDY (CLEAR); COLOR,URINE AMBER (YELLOW); PROTEIN,URINE DIPSTICK 1+ (NEGATIVE)
[2017-10-12 07:06] LABS: INR 1.05; PROTHROMBIN TIME 12.9 seconds (11.9-14.5)
[2017-10-12 07:07] LABS: PARTIAL THROMBOPLASTIN TIME 28.5 seconds (23.8-35.5)
[2017-10-12 07:15] LABS: ALANINE AMINOTRANSFERASE 22 IU/L (0-55); ALBUMIN 4.1 g/dL (3.5-5.0); ALBUMIN/GLOBULIN RATIO 1.2 (0.8-2.0); ALKALINE PHOSPHATASE 59 IU/L (40-150); ANION GAP 14.9 mmol/L (8-16); BLOOD UREA NITROGEN 10 mg/dL (7-26); BUN/CREATININE RATIO 9 (6-25); CALCIUM 9.4 mg/dL (8.4-10.2); CARBON DIOXIDE 25 mmol/L (22-29); CHLORIDE 102 mmol/L (98-107); CREATINE KINASE 95 IU/L (30-200); CREATININE, SERUM 1.13 mg/dL (0.72-1.25); EST GLOMERULAR FILTRATION RATE > 60 ML/MIN (60-); GLUCOSE 106 mg/dL (74-118); LIPASE 26 U/L (8-78); MAGNESIUM 2.2 MG/DL (1.3-2.1); POTASSIUM 3.9 mmol/L (3.5-5.1); SODIUM 138 mmol/L (136-145)
[2017-10-12 07:25] LABS: RBC,URINE 21-50 /HPF (0-5)
[2017-10-12 07:26] LABS: EPITHELIAL CELLS,URINE RARE /LPF
[2017-10-12] MEDS ORDERED: SODIUM CHLORIDE 0.9% 1000ML 1,000 ML ONE (07:41)
[2017-10-12] MEDS: SODIUM CHLORIDE 0.9% 1000ML 1,000 ML IV SCH ×3 (07:46→20:20)
[2017-10-12] MEDS ORDERED: ZOFRAN ODT4 MG PO (07:53)
[2017-10-12 09:36] VITALS: BP 147/95
[2017-10-12 09:57] VITALS: BP 147/95
[2017-10-12] MEDS ORDERED: PROPOFOL IV EMULSION 10 MG/ML 50 ML VIAL ONE (11:50)
[2017-10-12] MEDS: ONDANSETRON HCL INJ 2 MG/ML VIAL IV PRN ×3 (11:58→23:15)
[2017-10-12] MEDS: MORPHINE SULFATE 2 MG/ML SYR IV PRN ×3 (11:58→23:15)
[2017-10-12 12:00] VITALS: BP 131/77
[2017-10-12] MEDS ORDERED: PANTOPRAZOLE 40 MG 10ML VIAL IV ONE (15:00)
[2017-10-12] MEDS ORDERED: PANTOPRAZOL 40MG/SOD CHL 0.9% 50 ML IV SCH (15:30)
[2017-10-12 15:42] LABS: CREATINE KINASE 72 IU/L (30-200)
[2017-10-12 16:00] VITALS: BP 133/77
[2017-10-12] MEDS: PANTOPRAZOL 40MG/SOD CHL 0.9% 50 ML IV SCH ×2 (17:13→20:20)
[2017-10-12] MEDS ORDERED: MIDAZOLAM HCL 2 MG/2 ML VIAL ONE (17:43)
[2017-10-12] MEDS ORDERED: FENTANYL CITRATE/PF 100MCG/2 ML INJ ONE (17:43)
[2017-10-12] MEDS: METOCLOPRAMIDE HCL 10 MG/2ML VIAL IV SCH ×2 (18:33→23:14)
--- NOTE | 2017-10-12 19:03 | Operative Report ---
DATE OF PROCEDURE: October 12, 2017 REFERRING PHYSICIAN: Dr. Michael Frausto PROCEDURE PERFORMED: Esophagogastroduodenoscopy with biopsies. INDICATIONS FOR EGD: Nausea and vomiting, recurrent. MEDICATION: Patient was done under MAC. Please see anesthesiologist's note. PROCEDURE: With the patient in the left lateral decubitus position, the flexible fiberoptic Olympus gastroscope was introduced into the esophagus under direct visualization without any difficulty. There was some patchy erythema noted in the distal esophagus. A minute tongue of velvety red mucosa was noted to extend proximally from the GE junction, and that was biopsied to rule out Brito's. The scope was then advanced with ease into the stomach, traversing a small sliding hiatal hernia. Mucosa overlying the antrum and the body revealed some patchy erythema and low-grade edema, and biopsies were obtained and sent to stain for H. pylori. The pylorus was of normal contour and shape. It was intubated with ease, and the scope was advanced all way to the 2nd portion of the duodenum. The scope was then withdrawn slowly. Mucosa overlying the proximal 2nd portion and the duodenal bulb appeared to be within normal limits. The scope was then withdrawn back into the stomach and retroflexed. The mucosa overlying the fundus appeared to be within normal limits. The previously described hiatal hernia was also noted in the retroflexed position. The scope was then straightened out. The stomach was decompressed. The scope was subsequently withdrawn. Patient tolerated the procedure well. IMPRESSION 1. Distal esophagitis. 2. Rule out Brito's esophagus. 3. Small sliding hiatal hernia. 4. Gastritis, biopsied. Biopsy sent to stain for H. pylori. PLAN: Follow up histology. Initiate Protonix 40 mg 1 p.o. q.a.m. a.c. Job#: [id number] cc:MICHAEL FRAUSTO MD
[2017-10-12 20:00] VITALS: BP 108/88
[2017-10-12 22:59] LABS: CREATINE KINASE 71 IU/L (30-200)
[2017-10-13] VITALS (8 sets, daily range): BP systolic 101–144; BP diastolic 69–88
[2017-10-13] MEDS: PANTOPRAZOL 40MG/SOD CHL 0.9% 50 ML IV SCH ×5 (01:20→23:38)
[2017-10-13] MEDS: SODIUM CHLORIDE 0.9% 1000ML 1,000 ML IV SCH ×3 (03:07→18:38)
[2017-10-13] MEDS: METOCLOPRAMIDE HCL 10 MG/2ML VIAL IV SCH ×4 (05:16→23:39)
[2017-10-13] MEDS: ONDANSETRON HCL INJ 2 MG/ML VIAL IV PRN ×3 (05:17→19:50)
[2017-10-13] MEDS: MORPHINE SULFATE 2 MG/ML SYR IV PRN ×3 (05:17→19:51)
[2017-10-13] MEDS ORDERED: TRAMADOL HCL 50 MG TAB PO PRN (05:45)
[2017-10-13] MEDS: LEVOTHYROXINE SODIUM 75 MCG TAB PO SCH (06:12)
[2017-10-13 07:05] LABS: BASOPHILS # (AUTO) 0.1 (0.0-0.1); BASOPHILS % 0.8 % (0.0-1.0); EOSINOPHILS # (AUTO) 0.2 (0.0-0.4); EOSINOPHILS % 1.7 % (0.0-6.0); HEMATOCRIT 51.6 % (38.2-49.6); HEMOGLOBIN 16.5 g/dL (14.0-18.0); LYMPHOCYTES # (AUTO) 2.5 (1.0-3.2); LYMPHOCYTES % 24.6 % (18.0-39.1); MEAN CORPUSCULAR HEMOGLOBIN 28.8 pg (28-32); MEAN CORPUSCULAR VOLUME 90.1 fL (81-99); MONOCYTES # (AUTO) 1.3 (0.2-0.8); NEUTROPHILS # (AUTO) 6.1 (2.1-6.9); NEUTROPHILS % 59.3 % (38.7-80.0); PLATELET COUNT 198 x10e3/uL (140-360); RED BLOOD COUNT 5.73 x10e6/uL (4.3-5.7); RED CELL DISTRIBUTION WIDTH 13.7 % (11.7-14.4)
[2017-10-13 07:33] LABS: ANION GAP 12.2 mmol/L (8-16); BLOOD UREA NITROGEN 7 mg/dL (7-26); BUN/CREATININE RATIO 7 (6-25); CALCIUM 8.9 mg/dL (8.4-10.2); CARBON DIOXIDE 25 mmol/L (22-29); CHLORIDE 105 mmol/L (98-107); CREATININE, SERUM 0.97 mg/dL (0.72-1.25); EST GLOMERULAR FILTRATION RATE > 60 ML/MIN (60-); GLUCOSE 87 mg/dL (74-118); POTASSIUM 4.2 mmol/L (3.5-5.1); SODIUM 138 mmol/L (136-145)
[2017-10-13] MEDS: MELOXICAM 7.5 MG TAB PO SCH (09:00)
[2017-10-13] MEDS ORDERED: TAMSULOSIN HCL 0.4 MG CAP PO SCH (21:00)
[2017-10-14] VITALS: BP 115/62
[2017-10-14] MEDS: SODIUM CHLORIDE 0.9% 1000ML 1,000 ML IV SCH ×3 (02:54→12:59)
[2017-10-14] MEDS: PANTOPRAZOL 40MG/SOD CHL 0.9% 50 ML IV SCH ×2 (03:41→07:55)
[2017-10-14 04:00] VITALS: BP 132/75
[2017-10-14] MEDS: METOCLOPRAMIDE HCL 10 MG/2ML VIAL IV SCH ×2 (05:32→12:20)
[2017-10-14] MEDS: LEVOTHYROXINE SODIUM 75 MCG TAB PO SCH (05:32)
[2017-10-14] MEDS: MORPHINE SULFATE 2 MG/ML SYR IV PRN (05:42)
[2017-10-14] MEDS: ONDANSETRON HCL INJ 2 MG/ML VIAL IV PRN (05:42)
[2017-10-14 07:50] VITALS: BP 135/78
[2017-10-14] MEDS: MELOXICAM 7.5 MG TAB PO SCH (07:55)
[2017-10-14 11:52] VITALS: BP 122/77
== END 2017-10-14 14:50 | disposition home or self-care (01) | DRG 694 ==
LOC: ER 05:55 → ERHOLD 08:39 → MED/SURG3 09:15
PROVIDERS: ADMIT Internal Medicine; ATTEND Internal Medicine
PROC: 0DB38ZX Excision of Lower Esophagus, Via Natural or Artificial Opening Endoscopic, Diagnostic (ICD-10-PCS; 2017-10-12)
PROC: 0DB68ZX Excision of Stomach, Via Natural or Artificial Opening Endoscopic, Diagnostic (ICD-10-PCS; principal; 2017-10-12 13:30)
DX: N20.0 Calculus of kidney (principal); K20.9 Esophagitis, unspecified; M54.9 Dorsalgia, unspecified; E86.0 Dehydration; K44.9 Diaphragmatic hernia without obstruction or gangrene; K29.70 Gastritis, unspecified, without bleeding; R31.29 Other microscopic hematuria
CPT/HCPCS: 36415; 43239; 71045; 74176; 80048; 80053; 81001; 82150; 82550; 82553; 83605; 83690; 83735; 84484; 85025; 85610; 85730; 87040; 87086; 88305; 88312; 93005; 96360; 96374; 96375; 99284; J2250; J2270; J2405; J2550; J2765; J7030

== ENCOUNTER → 2017-10-30 | Day surgery (SDC) | payer BC ==
[~2017-10-30] MED LIST changes: +CEFTRIAXONE SOD 1 GM VIAL ONE; +DEXAMETHASONE SOD PHOS INJ 4 MG/ML VIAL ONE; +FENTANYL CITRATE/PF 100MCG/2 ML INJ ONE; +HYDROMORPHONE 1MG/1ML INJ ONE; +LIDOCAINE HCL 2% LOCAL INJ 5 ML SDV VIAL INJ ONE; +MIDAZOLAM HCL 2 MG/2 ML VIAL ONE; +ONDANSETRON HCL INJ 2 MG/ML VIAL ONE; +PROPOFOL IV EMULSION 10 MG/ML 20 ML VIAL ONE; +SEVOFLURANE INHAL SOLN 250 ML PEN BTL ONE; +ZOFRAN ODT4 MG PO
--- NOTE | 2017-10-30 05:50 | Diagnostic Imaging Report ---
ABDOMEN-1VIEW (KUB) Clinical history: Preoperative left kidney stone Technique: AP view abdomen Comparison: CT 10/12/2017 Findings: Abdomen: Nonobstructive bowel gas pattern. Other: 9 mm mm stone projects over the left inferior renal collecting system. No other stones are seen. Pelvic fluid was. Impression: 9 mm stone projects over the left inferior renal collecting system. Signed by: Dr Claire Broussard MD on 10/30/2017 5:46 AM
--- OUTSIDE RECORDS SUMMARY | 2017-10-30 06:14 | XMS REPORT | Continuity of Care Document ---
Author Author [facility] Organization [facility] Address [address] [place] [address] Phone Unavailable Care Team Providers Care Tile Machine Operator Name Role Phone JOVAN FRAUSTO MD PCP Insurance Providers Guarantor García Oh Address [address] [place] [phone] Email [email or web address] [facility] Policy Number [id number] Subscriber's Name Rafaela Oh Relationship 01 Group Number [id number] Group Name [facility] Effective Date 14 Advance Directives Directive Response Recorded Date/Time Does the patient have an advance directive? No 10/12/17 3:14pm If yes, is advance directive on file with [facility]? No 10/12/17 3:14pm If not on file with [facility] will patient provide a copy? Yes 10/12/17 3:14pm Do you have a Directive to Physician? No 10/12/17 8:33am Do you have a Medical Power of Operator Weapon Locating Radar? No 10/12/17 8:33am Do you have an out of hospital Do Not Resuscitate Order? No 10/12/17 8:33am Do you have any special needs we should be aware of? No 10/12/17 8:33am Do you have a support person here with you today? No 10/12/17 8:33am Did patient receive Notice of Privacy Practices? Yes 10/12/17 8:33am Did patient receive patient rights and responsibilities? Yes 10/12/17 8:33am Problems Medical Problem Onset Date Status Dehydration Unknown Ureterolithiasis Unknown Vomiting Unknown Medications Current Home Medications Medication Dose [...] 20 Mg Tablet.dr 40 Mg Oral Daily Ondansetron (Zofran Odt) 4 Mg Tab.rapdis 4 Mg Oral Every 6 Hours Pravastatin Sodium 40 Mg Tablet 40 Mg [...] Onset Date Status Hx Psychiatric Problems No 10/12/2017 3:14pm Not Applicable Not Applicable Hx Eating Disorder [...] No 10/01/2017 9:06pm Not Applicable Not Applicable Hospital Discharge Instructions No hospital discharge instruction information available. Plan of Care Discharge Date 10/14/17 2:50pm Disposition HOME, SELF-CARE Instructions/Education Provided Dehydration - Adult Vomiting - Pediatric Prescriptions See Medication Section Additional Instructions/Education Diet as tolerated Follow up with your PCP Take medications as prescribed Return to ER if any of previous symptoms persist. Functional Status Query Response Date Recorded Assistive Devices None October 12, 2017 9:57am Ambulation Ability Independent October 12, 2017 9:57am Toileting Ability Independent October 14, 2017 8:51am Allergies, Adverse Reactions, Alerts No known allergies. Immunizations No immunization information available. Vital Signs Acute Vital Signs Vital Response Date/Time Temperature (Fahrenheit) 98.1 degrees F (97.6 - 99.5) 10/14/2017 11:52am Pulse Pulse Rate (adult) 76 bpm (60 - 90) 10/14/2017 11:52am Respiratory Rate 18 bpm (12 - 24) 10/14/2017 11:52am Blood Pressure 122/77 mm Hg 10/14/2017 11:52am Height 5 ft 8 in 10/12/2017 6:01am Weight 137 lb 10/12/2017 3:14pm Body Mass Index 20.8 kg/m^2 10/14/2017 12:00am Results Laboratory Results Test Name Result Units Flags Reference Collection Date/Time Result Date/ Time Comments Bedside Glucose 123 mg/dL H 70-120 10/04/2017 11:35am 10/04/2017 4:35pm Meter ID: [id number] White Blood Count 10.20 x10e3/uL 4.8-10.8 10/13/2017 6:38am 10/13/2017 7:42am Red Blood Count 5.73 x10e6/uL H 4.3-5.7 10/13/2017 6:38am 10/13/2017 7: 42am Hemoglobin 16.5 g/dL 14.0-18.0 10/13/2017 6:38am 10/13/2017 7:42am Hematocrit 51.6 % H 38.2-49.6 10/13/2017 6:38am 10/13/2017 7:42am Mean Corpuscular Volume 90.1 fL # 81-99 10/13/2017 6:38am 10/13/2017 7: 42am Mean Corpuscular Hemoglobin 28.8 pg 28-32 10/13/2017 6:38am 10/13/2017 7:42am Mean Corpuscular Hemoglobin Concent 32.0 g/dL 31-35 10/13/2017 6:38am 10/13/2017 7:42am Red Cell Distribution Width 13.7 % 11.7-14.4 10/13/2017 6:38am 2017 7:42am Platelet Count 198 x10e3/uL 140-360 10/13/2017 6:38am 10/13/2017 7: 42am Neutrophils (%) (Auto) 59.3 % 38.7-80.0 10/13/2017 6:38am 10/13/2017 7: 42am Lymphocytes (%) (Auto) 24.6 % 18.0-39.1 10/13/2017 6:38am 10/13/2017 7: 42am Monocytes (%) (Auto) 13.0 % H 4.4-11.3 10/13/2017 6:38am 10/13/2017 7: 42am Eosinophils (%) (Auto) 1.7 % 0.0-6.0 10/13/2017 6:38am 10/13/2017 7: 42am Basophils (%) (Auto) 0.8 % 0.0-1.0 10/13/2017 6:38am 10/13/2017 7:42am IM GRANULOCYTES % 0.6 % 0.0-1.0 10/13/2017 6:38am 10/13/2017 7:42am Neutrophils # (Auto) 6.1 2.1-6.9 10/13/2017 6:38am 10/13/2017 7:42am Lymphocytes # (Auto) 2.5 1.0-3.2 10/13/2017 6:38am 10/13/2017 7:42am Monocytes # (Auto) 1.3 H 0.2-0.8 10/13/2017 6:38am 10/13/2017 7:42am Eosinophils # (Auto) 0.2 0.0-0.4 10/13/2017 6:38am 10/13/2017 7:42am Basophils # (Auto) 0.1 0.0-0.1 10/13/2017 6:38am 10/13/2017 7:42am Absolute Immature Granulocyte (auto 0.06 x10e3/uL 0-0.1 10/13/2017 6: 38am 10/13/2017 7:42am Prothrombin Time 12.9 seconds 11.9-14.5 10/12/2017 6:32am 10/12/2017 7: 09am Prothromb Time International Ratio 1.05 10/12/2017 6:32am 2017 7:09am Oral Anticoagulant Therapy INR Values: 1. Low Intensity Therapy 1.5 - 2.0 2. Moderate Intensity Therapy 2.0 - 3.0 3. High Intensity Therapy(1) 2.5 - 3.5 4. High Intensity Therapy(2) 3.0 - 4.0 5. Panic Value INR > 5.0 Activated Partial Thromboplast Time 28.5 seconds 23.8-35.5 10/12/2017 6: 32am 10/12/2017 7:09am Urine Color JESSICA H YELLOW 10/12/2017 6:32am 10/12/2017 7:01am Urine Clarity SL CLOUDY H CLEAR 10/12/2017 6:32am 10/12/2017 7:01am Urine Specific [place] 1.020 1.010-1.025 10/12/2017 6:32am 2017 7:01am Urine pH 5 5 - 7 10/12/2017 6:32am 10/12/2017 7:01am Urine Leukocyte Esterase NEGATIVE NEGATIVE 10/12/2017 6:32am 2017 7:01am Urine Nitrite NEGATIVE NEGATIVE 10/12/2017 6:32am 10/12/2017 7:01am Urine Protein 1+ H NEGATIVE 10/12/2017 6:32am 10/12/2017 7:01am Urine Glucose (UA) NEGATIVE NEGATIVE 10/12/2017 6:32am 10/12/2017 7: 01am Urine Ketones NEGATIVE NEGATIVE 10/12/2017 6:32am 10/12/2017 7:01am Urine Urobilinogen 0.2 mg/dL 0.2 - 1 10/12/2017 6:32am 10/12/2017 7: 01am Urine Bilirubin 1+ H NEGATIVE 10/12/2017 6:32am 10/12/2017 7:01am Confirmatory test currently unavailable. False positive results may occur. Urine Blood 4+ H NEGATIVE 10/12/2017 6:32am 10/12/2017 7:01am Urine WBC NONE /HPF 0-5 10/12/2017 6:32am 10/12/2017 7:26am Urine RBC 21-50 /HPF H 0-5 10/12/2017 6:32am 10/12/2017 7:26am Urine Bacteria NONE /HPF NONE 10/12/2017 6:32am 10/12/2017 7:26am Urine Epithelial Cells RARE /LPF NONE 10/12/2017 6:32am 10/12/2017 7: 26am Sodium Level 138 mmol/L 136-145 10/13/2017 6:38am 10/13/2017 7:45am Potassium Level 4.2 mmol/L 3.5-5.1 10/13/2017 6:38am 10/13/2017 7:45am Chloride Level 105 mmol/L 98-107 10/13/2017 6:38am 10/13/2017 7:45am Carbon Dioxide Level 25 mmol/L 22-29 10/13/2017 6:38am 10/13/2017 7: 45am Anion Gap 12.2 mmol/L 8-16 10/13/2017 6:38am 10/13/2017 7:45am Blood Urea Nitrogen 7 mg/dL 7-10/13/2017 6:38am 10/13/2017 7:45am Creatinine 0.97 mg/dL 0.72-1.25 10/13/2017 6:38am 10/13/2017 7:45am BUN/Creatinine Ratio 7 6-10/13/2017 6:38am 10/13/2017 7:45am Estimat Glomerular Filtration Rate > 60 ML/MIN 60- 10/13/2017 6:38am 7:45am Ranges were taken from the National Kidney Disease Education Program and the National Kidney Foundation literature. Reference ranges: 60 or greater: Normal 16-59 (for 3 consecutive months): Chronic kidney disease 15 or less: Kidney failure Glucose Level 87 mg/dL 74-118 10/13/2017 6:38am 10/13/2017 7:45am Calcium Level 8.9 mg/dL 8.4-10.2 10/13/2017 6:38am 10/13/2017 7:45am Lactic Acid Level 9.3 MG/DL 4.5-19.8 10/12/2017 6:32am 10/12/2017 7: 17am Magnesium Level 2.2 MG/DL H 1.3-2.1 10/12/2017 6:32am 10/12/2017 7:17am Total Bilirubin 0.7 mg/dL 0.2-1.2 10/12/2017 6:32am 10/12/2017 7:17am Aspartate Amino Transf (AST/SGOT) 17 IU/L 5-34 10/12/2017 6:32am 2017 7:17am Alanine Aminotransferase (ALT/SGPT) 22 IU/L 0-55 10/12/2017 6:32am 07/2018 7:17am Total Protein 7.4 g/dL 6.5-8.1 10/12/2017 6:32am 10/12/2017 7:17am Albumin 4.1 g/dL 3.5-5.0 10/12/2017 6:32am 10/12/2017 7:17am Globulin 3.3 g/dL 2.3-3.5 10/12/2017 6:32am 10/12/2017 7:17am Albumin/Globulin Ratio 1.2 0.8-2.0 10/12/2017 6:32am 10/12/2017 7: 17am Alkaline Phosphatase 59 IU/L 40-150 10/12/2017 6:32am 10/12/2017 7: 17am Creatine Kinase 71 IU/L 30-200 10/12/2017 10:20pm 10/12/2017 11:07pm Creatine Kinase MB 1.00 ng/mL 0-5.0 10/12/2017 10:20pm 10/12/2017 11: 19pm Troponin I < 0.001 ng/mL 0-0.300 10/12/2017 10:20pm 10/12/2017 11:19pm Amylase Level 46 U/L 25-125 10/12/2017 6:35am 10/12/2017 7:26am Lipase 26 U/L 8-78 10/12/2017 6:32am 10/12/2017 7:17am Microbiology Results Procedure Source Organism/Result Collection Date/Time Result Date/Time Result Status Blood Culture Blood NO GROWTH AFTER 48 HOURS 8:10am 10/14/2017 8:10am Preliminary Procedures Procedure Status Date Provider(s) EGD with biopsy Completed 10/12/17 GABINO CASEY MD Computed tomography of abdomen and pelvis with contrast Active 09/29/17 VAIBHAV CHRISTY MD Magnetic resonance imaging of lumbar spine without contrast Active 09/29/[address] of abdomen and pelvis without contrast Active 10/01/[address] of abdomen and pelvis without contrast Active 10/12/17 JONH MARCUM MD Encounters Encounter Location Arrival/Admit Date Discharge/Depart Date Attending Provider [facility] 10/12/17 8:39am JOVAN FRAUSTO MD Discharged Inpatient [facility] Patients [facility] 10/01/17 8:23pm 10/04/17 2:05pm JOVAN FRAUSTO MD Registered Clinic [facility]'s Patients [facility] 09/29/17 5:25am JOVAN FRAUSTO MD Departed Emergency Room [facility]'s Patients [facility] 09/29/17 1:56am 4:00am VAIBHAV CHRISTY MD
--- NOTE | 2017-11-11 13:09 | Operative Report ---
DATE OF PROCEDURE: October 30, 2017 PREOPERATIVE DIAGNOSIS: Left kidney stone. POSTOPERATIVE DIAGNOSIS: Left kidney stone. PROCEDURE PERFORMED 1. Staged shockwave lithotripsy of left side. 2. Supervision of fluoroscopy. ANESTHESIA: General. ESTIMATED BLOOD LOSS: Minimal. COMPLICATIONS: None. INDICATIONS FOR PROCEDURE: Mr. Roberson is a 62-year-old male who has a symptomatic left kidney stone and failed a trial of passage. He and I had a long discussion regarding the alternatives, risks and benefits including doing nothing, shockwave lithotripsy, ureteroscopy, percutaneous surgery and open surgery. He voiced understanding of the options and alternatives, the risks and the benefits and elected to proceed. PROCEDURE IN DETAIL: After informed consent was obtained, the patient was taken to the operative suite and placed supine on the operating table and underwent general anesthesia by the anesthesia services. The stone was localized in the X, Y, and Z planes. A total of 3000 shocks was delivered to the stone. Treatment details per treatment report. The patient tolerated the procedure well and was transported to the recovery room in excellent condition. SUPERVISION OF FLUOROSCOPY: I was present and supervised fluoroscopy. There was no radiologist present. Job#: [id number] EV
== END | disposition home or self-care (01) ==
LOC: OR 06:11
PROVIDERS: ATTEND Urology
DX: N20.0 Calculus of kidney (principal); N39.0 Urinary tract infection, site not specified; N40.1 Benign prostatic hyperplasia with lower urinary tract symptoms; N13.8 Other obstructive and reflux uropathy; I10 Essential (primary) hypertension; E03.9 Hypothyroidism, unspecified; M19.90 Unspecified osteoarthritis, unspecified site; E78.5 Hyperlipidemia, unspecified; K21.9 Gastro-esophageal reflux disease without esophagitis; Z68.30 Body mass index [BMI] 30.0-30.9, adult; Z87.891 Personal history of nicotine dependence
CPT/HCPCS: 50590; 74018; J0696; J1100; J1170; J2001; J2250; J2405

== ENCOUNTER → 2017-12-14 | Outpatient (CLI) | payer BC ==
[~2017-12-14] MED LIST changes: -CEFTRIAXONE SOD 1 GM VIAL ONE; -DEXAMETHASONE SOD PHOS INJ 4 MG/ML VIAL ONE; -FENTANYL CITRATE/PF 100MCG/2 ML INJ ONE; -HYDROMORPHONE 1MG/1ML INJ ONE; -LIDOCAINE HCL 2% LOCAL INJ 5 ML SDV VIAL INJ ONE; -MIDAZOLAM HCL 2 MG/2 ML VIAL ONE; -ONDANSETRON HCL INJ 2 MG/ML VIAL ONE; -PROPOFOL IV EMULSION 10 MG/ML 20 ML VIAL ONE; -SEVOFLURANE INHAL SOLN 250 ML PEN BTL ONE
--- NOTE | 2017-12-14 09:58 | Diagnostic Imaging Report ---
PROCEDURE:X-RAY ABDOMEN - KUB COMPARISON:None. INDICATIONS:CALCULUS OF KIDNEY FINDINGS: Questionable adjacent 3 and 5 mm calculi projecting over the interpolar left kidney. The 9 mm left lower pole calculus described in the comparison examination is no longer apparent. Left hemipelvic phlebolith is unchanged. No additional suspicious calcifications. Surgical clips project over the right mid abdomen. Bowel gas pattern is nonobstructive. Regional skeletal structures are grossly intact. CONCLUSION: The 9 mm left renal calculus described on the comparison examination is no longer evident. There are now questionable adjacent 3 and 5 mm calculi projecting over the interpolar region, which may reflect interval fragmentation of the previous larger calculus. Dictated by: Prasad Cornelius M.D. on 12/14/2017 at 10:00 Electronically approved by: Prasad Cornelius M.D. on 12/14/2017 at 10:00
== END ==
LOC: RAD 09:00
PROVIDERS: ATTEND Urology
DX: N20.0 Calculus of kidney (principal)
CPT/HCPCS: 74018